=== PATIENT | female | born 1970 | race Caucasian/White ===

== ENCOUNTER → 2017-09-07 | Outpatient (CLI) | payer OTHER | LOC: BMCIMAGING 11:54 | PROVIDERS: ATTEND Podiatrist Foot & Ankle Surgery | DX: M79.671 Pain in right foot (principal); M79.672 Pain in left foot; M77.32 Calcaneal spur, left foot; M77.31 Calcaneal spur, right foot; R93.6 Abnormal findings on diagnostic imaging of limbs ==

== ENCOUNTER 2017-09-19 12:19 | Emergency (ER) | payer OTHER ==
--- NOTE | 2017-09-19 12:32 | EDPHY ---
H & P Time Seen by Provider: 09/19/17 12:24 HPI/ROS: Chief Complaint: Right ankle injury HPI: 47-year-old woman was walking down 2 stairs when she inverted her right ankle. She felt an immediate pop in notice swelling. She has been unable to weight bear since. Does not have a history of prior ankle injuries. Did not fall. No numbness or weakness. No other complaints at this time. ROS: 10 point Review of Systems is negative except as noted in the HPI. Social History: No smoking, no alcohol, no recreational drug use Family History: non-contributory Physical Exam: General: Awake, alert, no acute distress Right lower extremity: Hip is nontender, full range of motion of pain, knee, she does have some tenderness over the proximal fibula, she is able to flex her knee past 90, ankle: Stay, she has got significant swelling and ecchymosis just inferior and anterior to her lateral malleolus. There is no significant malleolar deformity or tenderness. Sensations intact. Capillary refills less than 2 sec. She has 2+ dorsalis pedis pulses. Skin: No rash Constitutional: Initial Vital Signs Temperature (C) 36.7 C 09/19/17 12:26 Heart Rate 77 09/19/17 12:26 Respiratory Rate 16 09/19/17 12:26 Blood Pressure 123/88 H 09/19/17 12:26 O2 Sat (%) 95 09/19/17 12:26 O2 Delivery Mode Room Air Allergies/Adverse Reactions: No Known Allergies Allergy (Unverified 09/19/17 12:41) Home Medications: Medication Instructions Recorded Folic Acid 09/19/17 Hydroquinone 09/19/17 Methotrexate 09/19/17 ZYRTEC 09/19/17 Medical Decision Making - Diagnostics Imaging Results: Imaging Impressions Tibia/Fibula X-Ray 09/19/17 12:31 Impression: 1. No acute osseous findings in the tibia or fibula. 2. Incomplete visualization of an avulsion fracture seen on the comparison ankle. Imaging: Discussed imaging studies w/ composition instructor Radiologist ED Course/Re-evaluation: Patient placed in a orthopedic boot. She has crutches. Will refer to Orthopedics for follow-up. Departure - Departure Disposition: Home, Routine, Self-Care Clinical Impression: Foot fracture Condition: Good Instructions: Crutch Instructions (ED), Foot Fracture in Adults (ED) Additional Instructions: Follow up with Orthopedics in 3-4 days for further evaluation. You may alternate ibuprofen with acetaminophen every 4 hr per label instructions for pain. Referrals: Gerard Tsang MD [Medical Doctor] - As per Instructions
[2017-09-19 14:33] VITALS: BP 151/86
== END 2017-09-19 14:16 | disposition home or self-care (01) ==
LOC: CED 12:19
DX: S92.901A Unspecified fracture of right foot, initial encounter for closed fracture (principal); X50.9XXA Other and unspecified overexertion or strenuous movements or postures, initial encounter; Y92.89 Other specified places as the place of occurrence of the external cause; Y99.8 Other external cause status; Y93.01 Activity, walking, marching and hiking
CPT/HCPCS: 73590-PO; 73610-PO; 73630-PO; L4386

== ENCOUNTER → 2017-12-03 | Outpatient (CLI) | payer OTHER | LOC: BMCIMAGING 08:04 | PROVIDERS: ATTEND Podiatrist Foot & Ankle Surgery | DX: S92.021D Displaced fracture of anterior process of right calcaneus, subsequent encounter for fracture with routine healing (principal) ==